=== PATIENT | female | born 1970 ===

== ENCOUNTER 2020-06-25 10:00 | Outpatient (CLI) | payer OTHER | END 2020-06-25 10:05 | disposition home or self-care (01) | LOC: PPH VACUNA 10:00 | DX: Z23 Encounter for immunization (principal) ==

== ENCOUNTER 2020-12-30 14:20 | Outpatient (CLI) | payer OTHER | END 2020-12-30 14:35 | disposition home or self-care (01) | LOC: PPH VACUNA 14:20 | PROVIDERS: ATTEND Emergency Medicine Pediatric Emergency Medicine | DX: Z23 Encounter for immunization (principal) ==